=== PATIENT | male | born 1950 | race Hispanic/Latino ===

== ENCOUNTER 2021-01-07 | Emergency (ER) | payer SELFPAY ==
[2021-01-07 10:11] LABS: HEMATOCRIT 40.9 % (39.0-50.0); IMMATURE GRANULOCYTES 0.4 % (0.0-5.0); MEAN CELL VOLUME 95.1 fL CALC (80.0-100.0); MEAN CORPUSCULAR HGB 32.6 pG CALC (26.0-32.0); MEAN CORPUSCULAR HGB CONC 34.2 g/dL CAL (32.0-36.0); NEUT# 2.66 thou/uL (1.82-7.42); RED BLOOD COUNT 4.3 mill/uL (4.70-6.10); RED CELL DISTRI WIDTH 12.4 % (11.5-15.5)
[2021-01-07 10:26] LABS: ALBUMIN 4.3 g/dL (3.2-5.0); ALKALINE PHOSPHATASE 90 u/l (38-126); AMYLASE 75 u/l (30-110); ANION GAP 15 (6-22 (CALC)); BILIRUBIN, TOTAL 0.6 mg/dL (0.0-1.4); BUN 9 mg/dL (8-23); BUN/CREATININE RATIO 14 (12-20 (CALC)); CARBON DIOXIDE 20 mmol/l (22-30); CHLORIDE 110 mmol/l (95-108); CREATININE 0.6 mg/dL (0.7-1.3); ETHYL ALCOHOL 264 mg/dl (0-30); GFR > 60 ML/MIN (>=60 (CALC)); GFR FOR AFR.AMER. > 60 ML/MIN (>=60 (CALC)); LIPASE 109 u/l (23-300); POTASSIUM 3.9 mmol/l (3.5-5.1); SGOT/AST 27 u/l (19-48); SODIUM 141 mmol/l (137-146); TOTAL PROTEIN 7.7 g/dL (6.3-8.2)
[2021-01-07 10:37] LABS: MYOGLOBIN 78 ng/mL (0 - 121)
== END 2021-01-07 15:27 | disposition home or self-care (01) | DRG 897 ==
PROVIDERS: Emergency Medicine
DX: F10.129 Alcohol abuse with intoxication, unspecified (principal)

== ENCOUNTER 2021-06-07 14:51 | Emergency (ER) | payer OTHER ==
[~2021-06-07] VITALS: Ht 162.6 cm; Wt 68.0 kg
[2021-06-07] MEDS ORDERED: ZPAK PO (16:03)
[2021-06-07 17:30] VITALS: BP 141/64
== END 2021-06-07 17:30 | disposition home or self-care (01) | DRG 179 ==
LOC: ED 14:51
DX: U07.1 COVID-19 (principal)